=== PATIENT | male | born 1975 | race Caucasian/White ===

== ENCOUNTER 2023-12-12 11:33 | Inpatient (IN) | payer OTHER ==
[~2023-12-12] VITALS: Ht 175.3 cm; Wt 115.7 kg
[2023-12-12] MEDS: SODIUM CHLORIDE 0.9% 1,000 ML IV ONE (12:32)
[2023-12-12] MEDS: LEVETIRACETAM 1000MG PREMIX 100 ML IV ONE (12:32)
[2023-12-12 12:53] LABS: BASOPHILS % 1.1 % (0.0-2.0); EOSINOPHILS % 2.1 % (0.0-5.0); HEMATOCRIT. 44.2 % (42.0-52.0); HEMOGLOBIN. 14.8 g/dL (14.0-18.0); LYMPHOCYTES % 33.8 % (20.0-50.0); MEAN CORPUSCULAR HEMOGLOBIN 30.1 pg (28.0-32.0); MEAN CORPUSCULAR HGB CONC 33.5 g/dL (31.0-37.0); MEAN CORPUSCULAR VOLUME 89.9 fL (80.0-94.0); MEAN PLATELET VOLUME 10.1 fl (7.4-10.4); MONOCYTES % 6.3 % (2.0-8.0); NEUTROPHILS % 56.7 % (40.0-76.0); PLATELET 55 x1000/uL (130-400); RED BLOOD CELL COUNT 4.92 mill/uL (4.7-6.1); WHITE BLOOD COUNT 4.3 x1000/uL (4.5-11.0)
[2023-12-12 13:02] LABS: INR 1.1; PROTHROMBIN TIME 12.5 sec (9.6-11.0)
[2023-12-12 13:04] LABS: CHLORIDE 115 mEq/L (98-107); POTASSIUM 4.5 mEq/L (3.5-5.1); SODIUM 143 mEq/L (136-145)
[2023-12-12 13:05] LABS: CALCIUM 8.7 mg/dL (8.7-10.4); CARBON DIOXIDE 25 mEq/L (21-32)
[2023-12-12 13:10] LABS: CREATININE 0.9 mg/dL (0.6-1.3); GLUCOSE 108 mg/dL (70-105)
[2023-12-12 13:11] LABS: UREA NITROGEN BLOOD 10 mg/dL (9-23)
[2023-12-12 13:27] LABS: ETHANOL BLOOD < 10 mg/dL (<10); PHENOBARBITAL < 3.0 ug/mL (15.0-40.0); PHENYTOIN < 2.0 ug/mL (10-20)
[2023-12-12 13:28] LABS: CARBAMAZEPINE < 0.4 ug/mL (4-12); VALPROIC ACID < 3.0 ug/mL (50-100)
[2023-12-12 13:37] LABS: AMMONIA 166 uMol/L (<32)
[2023-12-12] MEDS: LACTULOSE 20G/30ML UDC PO NR (15:24)
[2023-12-12] MEDS: RIFAXIMIN 550 MG TABLET PO SCH (16:11)
[2023-12-12 17:12] LABS: CLARITY URINE CLEAR (CLEAR); COLOR URINE YELLOW (YELLOW); GLUCOSE URINE NEGATIVE (NEGATIVE); KETONES URINE NEGATIVE (NEGATIVE); LEUKOCYTE ESTERASE URINE NEGATIVE (NEGATIVE); NITRITE URINE NEGATIVE (NEGATIVE); OCCULT BLOOD URINE NEGATIVE (NEGATIVE); PROTEIN URINE NEGATIVE (NEGATIVE); SPECIFIC GRAVITY URINE 1.012 (1.005-1.030)
[2023-12-12 17:12] LABS: ALANINE AMINOTRANSFERASE 19 IU/L (10-49); ASPARTATE AMINOTRANSFERASE 43 IU/L (<34)
[2023-12-12 17:13] LABS: ALBUMIN 3.7 g/dL (3.2-4.8); BILIRUBIN DIRECT 0.5 mg/dL (<=3.0); BILIRUBIN TOTAL 1.2 mg/dL (0.1-1.0); PROTEIN TOTAL 6.7 g/dL (6.0-8.3)
[2023-12-12] MEDS ORDERED: ONDANSETRON HCL 4MG/2ML INJ IV PRN (17:15)
[2023-12-12] MEDS ORDERED: HYDROCODONE/ACETAMINOPHEN 5/325MG TABLET PO PRN (17:15)
[2023-12-12] MEDS ORDERED: IPRATROPIUM/ALBUTEROL 0.5-3(2.5)MG/3ML NEB HHN PRN (17:15)
[2023-12-12] MEDS ORDERED: ACETAMINOPHEN 325MG TABLET PO PRN (17:15)
[2023-12-12 17:18] LABS: *AMPHETAMINES SCREEN URINE NEGATIVE (NEGATIVE); *BARBITURATES SCREEN URINE NEGATIVE (NEGATIVE); *BENZODIAZEPINES SCREEN URINE NEGATIVE (NEGATIVE); *COCAINE SCREEN URINE NEGATIVE (NEGATIVE); METHADONE URINE SCREEN NEGATIVE (NEGATIVE)
[2023-12-12 17:19] LABS: CANNABINOID URINE SCREEN NEGATIVE (NEGATIVE); ECSTASY MDMA SCREEN URINE NEGATIVE (NEGATIVE); OPIATES URINE SCREEN NEGATIVE (NEGATIVE); PHENCYCLIDINE URINE SCREEN NEGATIVE (NEGATIVE)
[2023-12-12 17:27] LABS: BACTERIA URINE TRACE; RBC URINE NONE SEEN /hpf (0-2); SQUAMOUS EPITHELIAL CELL URINE RARE /lpf (RARE/1+); WBC URINE 0-2 /hpf (0-2)
[2023-12-12 20:00] VITALS: BP 127/89; PULSE 69; RESP 18; TEMP 36.28068; O2SAT 96
[2023-12-12] MEDS ORDERED: NALOXONE HCL 0.4MG/ML VIAL IV PRN (20:00)
[2023-12-12] MEDS: LEVETIRACETAM 500MG PREMIX 100 ML IV SCH (21:02)
[2023-12-12 22:14] LABS: CREATINE KINASE MB FRACTION < 0.5 ng/mL (0.5-3.6)
[2023-12-12 22:15] LABS: CREATINE KINASE 79 IU/L (46-171)
[2023-12-12 22:20] LABS: TROPONIN I HIGH SENSITIVITY < 4 ng/L (3.0-53)
[2023-12-13] VITALS (63 sets, daily range): BP systolic 98–203; BP diastolic 54–155; PULSE 61–115; RESP 11–33; TEMP 36.418–36.9474; O2SAT 95–100
[2023-12-13 08:13] LABS: BASOPHILS % 0.8 % (0.0-2.0); EOSINOPHILS % 2.3 % (0.0-5.0); HEMATOCRIT. 45.3 % (42.0-52.0); HEMOGLOBIN. 14.4 g/dL (14.0-18.0); LYMPHOCYTES % 39.9 % (20.0-50.0); MEAN CORPUSCULAR HEMOGLOBIN 28.8 pg (28.0-32.0); MEAN CORPUSCULAR HGB CONC 31.8 g/dL (31.0-37.0); MEAN CORPUSCULAR VOLUME 90.7 fL (80.0-94.0); PLATELET 53 x1000/uL (130-400); RED CELL DISTRIBUTION WIDTH 16.1 % (11.6-14.6); WHITE BLOOD COUNT 4.1 x1000/uL (4.5-11.0)
[2023-12-13 08:17] LABS: CHLORIDE 113 mEq/L (98-107); POTASSIUM 3.8 mEq/L (3.5-5.1); SODIUM 142 mEq/L (136-145)
[2023-12-13 08:18] LABS: CALCIUM 8.7 mg/dL (8.7-10.4); CARBON DIOXIDE 24 mEq/L (21-32)
[2023-12-13 08:23] LABS: CREATINE KINASE MB FRACTION < 0.5 ng/mL (0.5-3.6); CREATININE 0.7 mg/dL (0.6-1.3); GLUCOSE 84 mg/dL (70-105); UREA NITROGEN BLOOD 8 mg/dL (9-23)
[2023-12-13 08:25] LABS: ALANINE AMINOTRANSFERASE 16 IU/L (10-49); ALBUMIN 3.4 g/dL (3.2-4.8); AMMONIA 81 uMol/L (<32); ASPARTATE AMINOTRANSFERASE 36 IU/L (<34); BILIRUBIN DIRECT 0.7 mg/dL (<=3.0); BILIRUBIN TOTAL 1.8 mg/dL (0.1-1.0); PROTEIN TOTAL 6.3 g/dL (6.0-8.3)
[2023-12-13 08:26] LABS: CREATINE KINASE 65 IU/L (46-171)
[2023-12-13 08:29] LABS: TROPONIN I HIGH SENSITIVITY < 4 ng/L (3.0-53)
[2023-12-13] MEDS ORDERED: NALOXONE HCL 0.4MG/ML VIAL IV PRN (09:30)
[2023-12-13] MEDS ORDERED: ASPIRIN 325MG EC TABLET PO NR (09:30)
[2023-12-13] MEDS ORDERED: MANNITOL 20% (20GM/100ML) BAG 500ML PREMIX IV ONE (10:00)
[2023-12-13] MEDS: NICARDIPINE 100 MG in SODIUM CHLORIDE 0.9% 60 ML IV PRN (10:28)
[2023-12-13] MEDS ORDERED: IOHEXOL-350 100 ML BOTTLE ONE (10:28)
[2023-12-13] MEDS: DEXAMETHASONE 10 MG/ML VIAL IV NR (10:30)
[2023-12-13 10:35] LABS: BG BASE EXCESS -3.9 mmol/L (-2.0-3.0); BG CARBOXYHEMOGLOBIN 0.5 % (0.5-1.5); BG DEOXYHEMOGLOBIN 0.4 % (0.0-5.0); BG FRACTION INSPIRED OXYGEN 44; BG HCO3 ACT 19.6 mmol/L (21.0-28.0); BG OXYGEN SATURATION 99.6 % (94.0-98.0); BG OXYHEMOGLOBIN 99.1 % (94.0-98.0); BG PCO2 32.1 mmHg (35.0-48.0); BG PH 7.404 (7.350-7.450); BG PO2 196.4 mmHg (83.0-108.0); BG SAMPLE SITE RIGHT RADIAL; BG VENT MODE NASAL CANNULA
[2023-12-13] MEDS ORDERED: GENTAMICIN SULF 40MG/ML 2ML VIAL ONE (11:23)
[2023-12-13] MEDS ORDERED: THROMBIN (BOVINE) 5000 UNITS/VIAL TOP ONE (11:23)
[2023-12-13] MEDS ORDERED: LIDOCAINE HCL/EPINEPHRINE 1%-EPI 1:100,000 20ML VIAL ONE (11:23)
[2023-12-13] MEDS ORDERED: BACITRACIN 14GM TUBE TOP ONE (11:23)
[2023-12-13 11:58] LABS: BASOPHILS % 0.6 % (0.0-2.0); EOSINOPHILS % 0.6 % (0.0-5.0); HEMATOCRIT. 48.9 % (42.0-52.0); LYMPHOCYTES % 30.6 % (20.0-50.0); MEAN CORPUSCULAR HEMOGLOBIN 29.3 pg (28.0-32.0); MEAN CORPUSCULAR HGB CONC 32.6 g/dL (31.0-37.0); MEAN CORPUSCULAR VOLUME 89.8 fL (80.0-94.0); MEAN PLATELET VOLUME 10.5 fl (7.4-10.4); MONOCYTES % 3.2 % (2.0-8.0); PLATELET 67 x1000/uL (130-400); RED BLOOD CELL COUNT 5.44 mill/uL (4.7-6.1); RED CELL DISTRIBUTION WIDTH 16.2 % (11.6-14.6); WHITE BLOOD COUNT 7.3 x1000/uL (4.5-11.0)
[2023-12-13 12:04] LABS: CARBON DIOXIDE 23 mEq/L (21-32); CHLORIDE 109 mEq/L (98-107); SODIUM 141 mEq/L (136-145)
[2023-12-13 12:05] LABS: CALCIUM 9.1 mg/dL (8.7-10.4)
[2023-12-13 12:10] LABS: CREATININE 0.7 mg/dL (0.6-1.3); GLUCOSE 168 mg/dL (70-105); TRIGLYCERIDE 89 mg/dL (0-150)
[2023-12-13 12:11] LABS: LDL CHOLESTEROL 91 mg/dL (5-100); UREA NITROGEN BLOOD 9 mg/dL (9-23)
[2023-12-13 12:12] LABS: CHOLESTEROL 155 mg/dL (<200); HDL CHOLESTEROL 50 mg/dL (>55)
[2023-12-13] MEDS: WATER IV NR (12:15)
[2023-12-13] MEDS: DEXT 5% IV NR (12:15)
[2023-12-13] MEDS: MANNITOL IV NR (12:15)
[2023-12-13 12:17] LABS: INR 1.1; PROTHROMBIN TIME 12.5 sec (9.6-11.0)
[2023-12-13] MEDS ORDERED: VECURONIUM BROMIDE 10 MG/VIAL IV ONE ×2 (12:40→14:42)
[2023-12-13] MEDS ORDERED: PROPOFOL 200MG/20ML VIAL IV ONE (13:45)
[2023-12-13] MEDS ORDERED: HYDROMORPHONE HCL/PF 2MG/ML INJ ONE (14:37)
[2023-12-13 16:05] LABS: BG BASE EXCESS -3.3 mmol/L (-2.0-3.0); BG CARBOXYHEMOGLOBIN 1.1 % (0.5-1.5); BG DEOXYHEMOGLOBIN 2.9 % (0.0-5.0); BG FRACTION INSPIRED OXYGEN 40; BG HCO3 ACT 22.1 mmol/L (21.0-28.0); BG METHEMOGLOBIN 0.1 % (0.5-1.5); BG OXYGEN SATURATION 97.1 % (94.0-98.0); BG OXYHEMOGLOBIN 95.9 % (94.0-98.0); BG PCO2 41.1 mmHg (35.0-48.0); BG PH 7.349 (7.350-7.450); BG SAMPLE SITE RIGHT RADIAL; BG TOTAL HEMOGLOBIN 16.2 g/dL (13.5-17.5); BG VENT MODE VENT - AC
[2023-12-13] MEDS: LACTULOSE 20G/30ML UDC PO SCH (16:39)
[2023-12-13] MEDS: CEFAZOLIN 1000MG PREMIX 50 ML IV SCH (16:40)
[2023-12-13] MEDS: DEXT 5%/LACTATED RINGERS 1,000 ML IV SCH (19:17)
[2023-12-13] MEDS: PROPOFOL 10MG/ML 100ML 100 ML IV PRN (21:04)
[2023-12-13] MEDS: LEVETIRACETAM 500MG PREMIX 100 ML IV SCH (21:05)
[2023-12-13] MEDS ORDERED: CEFAZOLIN SODIUM 1000MG/VIAL IV SCH (22:00)
[2023-12-14] VITALS (103 sets, daily range): BP systolic 89–138; BP diastolic 56–85; PULSE 80–111; RESP 10–27; TEMP 36.72516–37.94748; O2SAT 89–100
[2023-12-14 05:46] LABS: BASOPHILS % 0.1 % (0.0-2.0); HEMATOCRIT. 42.2 % (42.0-52.0); LYMPHOCYTES % 15.2 % (20.0-50.0); MEAN CORPUSCULAR HEMOGLOBIN 29.6 pg (28.0-32.0); MEAN CORPUSCULAR HGB CONC 33.2 g/dL (31.0-37.0); MEAN PLATELET VOLUME 9.9 fl (7.4-10.4); MONOCYTES % 5.7 % (2.0-8.0); PLATELET 86 x1000/uL (130-400); RED BLOOD CELL COUNT 4.74 mill/uL (4.7-6.1); RED CELL DISTRIBUTION WIDTH 15.8 % (11.6-14.6); WHITE BLOOD COUNT 12.6 x1000/uL (4.5-11.0)
[2023-12-14 05:53] LABS: CHLORIDE 111 mEq/L (98-107); POTASSIUM 3.8 mEq/L (3.5-5.1); SODIUM 144 mEq/L (136-145)
[2023-12-14 05:54] LABS: CALCIUM 8.8 mg/dL (8.7-10.4); CARBON DIOXIDE 25 mEq/L (21-32)
[2023-12-14 05:59] LABS: GLUCOSE 141 mg/dL (70-105); TRIGLYCERIDE 84 mg/dL (0-150); UREA NITROGEN BLOOD 20 mg/dL (9-23)
[2023-12-14 06:01] LABS: PHOSPHORUS 2.7 mg/dL (2.5-4.9)
[2023-12-14] MEDS: MORPHINE SULFATE 4 MG/ML INJ (FOR IV/IM USE) IV PRN (14:50)
[2023-12-14 15:19] LABS: BG BASE EXCESS -0.4 mmol/L (-2.0-3.0); BG CARBOXYHEMOGLOBIN 0.9 % (0.5-1.5); BG DEOXYHEMOGLOBIN 10.5 % (0.0-5.0); BG METHEMOGLOBIN 0.3 % (0.5-1.5); BG OXYGEN SATURATION 89.4 % (94.0-98.0); BG OXYHEMOGLOBIN 88.3 % (94.0-98.0); BG PCO2 34.3 mmHg (35.0-48.0); BG PH 7.445 (7.350-7.450); BG PO2 56.3 mmHg (83.0-108.0); BG SAMPLE SITE RIGHT RADIAL; BG TOTAL HEMOGLOBIN 14.5 g/dL (13.5-17.5); BG VENT MODE VENT - AC
[2023-12-14] MEDS ORDERED: FENTANYL CITRATE/PF 2,500 MCG in SODIUM CHLORIDE 0.9% 200 ML IV PRN (15:30)
[2023-12-14 16:49] LABS: HEMATOCRIT 41.8 % (42.0-52.0); HEMOGLOBIN 14.1 g/dL (14.0-18.0); MEAN CORPUSCULAR HEMOGLOBIN 29.9 pg (28.0-32.0); MEAN CORPUSCULAR HGB CONC 33.8 g/dL (31.0-37.0); MEAN CORPUSCULAR VOLUME 88.5 fL (80.0-94.0); PLATELET 86 x1000/uL (130-400); RED BLOOD CELL COUNT 4.72 mill/uL (4.7-6.1); RED CELL DISTRIBUTION WIDTH 15.8 % (11.6-14.6); WHITE BLOOD COUNT 9.6 x1000/uL (4.5-11.0)
[2023-12-14] MEDS: PROPOFOL 10MG/ML 100ML 100 ML IV PRN (17:03)
[2023-12-14] MEDS: PANTOPRAZOLE 80 MG in SODIUM CHLORIDE 0.9% 100 ML IV SCH (17:04)
[2023-12-14] MEDS ORDERED: ACETAMINOPHEN 325MG TABLET NG PRN (17:15)
[2023-12-14] MEDS: ACETAMINOPHEN 650MG/20.3ML UDC NG PRN (20:42)
[2023-12-15] VITALS (111 sets, daily range): BP systolic 91–139; BP diastolic 58–86; PULSE 77–106; RESP 12–22; TEMP 36.72516–37.83636; O2SAT 92–100
[2023-12-15 02:30] LABS: BG BASE EXCESS -0.1 mmol/L (-2.0-3.0); BG CARBOXYHEMOGLOBIN 0.5 % (0.5-1.5); BG DEOXYHEMOGLOBIN 4.5 % (0.0-5.0); BG FRACTION INSPIRED OXYGEN 100; BG HCO3 ACT 22.7 mmol/L (21.0-28.0); BG METHEMOGLOBIN 0.3 % (0.5-1.5); BG OXYGEN SATURATION 95.5 % (94.0-98.0); BG OXYHEMOGLOBIN 94.7 % (94.0-98.0); BG PCO2 31.9 mmHg (35.0-48.0); BG PH 7.471 (7.350-7.450); BG PO2 76.9 mmHg (83.0-108.0); BG SAMPLE SITE RIGHT RADIAL; BG TOTAL HEMOGLOBIN 13.7 g/dL (13.5-17.5); BG VENT MODE VENT - P/C
[2023-12-15 05:31] LABS: BASOPHILS % 0.1 % (0.0-2.0); DIFFERENTIAL COMMENT 0; EOSINOPHILS % 0.2 % (0.0-5.0); HEMATOCRIT. 40.7 % (42.0-52.0); HEMOGLOBIN. 13.5 g/dL (14.0-18.0); LYMPHOCYTES % 14.3 % (20.0-50.0); MEAN CORPUSCULAR HEMOGLOBIN 30.5 pg (28.0-32.0); MEAN CORPUSCULAR HGB CONC 33.3 g/dL (31.0-37.0); MEAN CORPUSCULAR VOLUME 91.6 fL (80.0-94.0); MEAN PLATELET VOLUME 10.1 fl (7.4-10.4); NEUTROPHILS % 77.4 % (40.0-76.0); PLATELET 68 x1000/uL (130-400); RED BLOOD CELL COUNT 4.45 mill/uL (4.7-6.1); RED CELL DISTRIBUTION WIDTH 16.1 % (11.6-14.6); WHITE BLOOD COUNT 11.8 x1000/uL (4.5-11.0)
[2023-12-15 05:48] LABS: CARBON DIOXIDE 19 mEq/L (21-32); CHLORIDE 111 mEq/L (98-107); POTASSIUM 4.1 mEq/L (3.5-5.1); SODIUM 142 mEq/L (136-145)
[2023-12-15 05:49] LABS: CALCIUM 7.9 mg/dL (8.7-10.4)
[2023-12-15 05:54] LABS: CREATININE 0.9 mg/dL (0.6-1.3); GLUCOSE 117 mg/dL (70-105); TRIGLYCERIDE 88 mg/dL (0-150); UREA NITROGEN BLOOD 18 mg/dL (9-23)
[2023-12-15 05:56] LABS: PHOSPHORUS 4.4 mg/dL (2.5-4.9)
[2023-12-15] MEDS ORDERED: PANTOPRAZOLE SODIUM 40 MG/VIAL IV SCH (09:00)
[2023-12-15] MEDS: VANCOMYCIN 1.5GM PMX (XELLIA) 300 ML IV SCH (14:11)
[2023-12-15] MEDS: PIPERACILLIN/TAZO 3.375G/50ML 50 ML IV SCH (14:12)
[2023-12-15] MEDS: PROPOFOL 10MG/ML 100ML 100 ML IV PRN (17:19)
[2023-12-15] MEDS: NICARDIPINE 100 MG in SODIUM CHLORIDE 0.9% 60 ML IV PRN (19:13)
[2023-12-15] MEDS: IPRATROPIUM/ALBUTEROL 0.5-3(2.5)MG/3ML NEB HHN SCH (20:27)
[2023-12-15] MEDS: MICONAZOLE NITRATE 2% OINT 71GM TOP SCH (21:15)
[2023-12-15] MEDS: VANCOMYCIN 1.25GM PMX (XELLIA) 250 ML IV SCH (21:43)
[2023-12-15 22:32] LABS: BG BASE EXCESS -5.3 mmol/L (-2.0-3.0); BG CARBOXYHEMOGLOBIN 0.3 % (0.5-1.5); BG FRACTION INSPIRED OXYGEN 100; BG HCO3 ACT 17.1 mmol/L (21.0-28.0); BG METHEMOGLOBIN 0.3 % (0.5-1.5); BG OXYHEMOGLOBIN 98.4 % (94.0-98.0); BG PCO2 25.8 mmHg (35.0-48.0); BG PH 7.439 (7.350-7.450); BG SAMPLE SITE LEFT RADIAL; BG TOTAL HEMOGLOBIN 14.4 g/dL (13.5-17.5); BG VENT MODE VENT - P/C
[2023-12-16] VITALS (105 sets, daily range): BP systolic 91–126; BP diastolic 47–80; PULSE 92–121; RESP 8–23; TEMP 36.50292–39.33648; O2SAT 94–100
[2023-12-16] MEDS: ACETYLCYSTEINE 200MG/ML 20% VIAL 4ML INH SCH (02:06)
[2023-12-16 06:10] LABS: BASOPHILS % 0.1 % (0.0-2.0); EOSINOPHILS % 0.2 % (0.0-5.0); HEMATOCRIT. 38.8 % (42.0-52.0); HEMOGLOBIN. 13.1 g/dL (14.0-18.0); LYMPHOCYTES % 12.8 % (20.0-50.0); MEAN CORPUSCULAR HEMOGLOBIN 29.7 pg (28.0-32.0); MEAN CORPUSCULAR HGB CONC 33.6 g/dL (31.0-37.0); MEAN CORPUSCULAR VOLUME 88.2 fL (80.0-94.0); MEAN PLATELET VOLUME 10.8 fl (7.4-10.4); MONOCYTES % 7.4 % (2.0-8.0); NEUTROPHILS % 79.5 % (40.0-76.0); PLATELET 72 x1000/uL (130-400); RED BLOOD CELL COUNT 4.41 mill/uL (4.7-6.1); RED CELL DISTRIBUTION WIDTH 15.2 % (11.6-14.6); WHITE BLOOD COUNT 11.1 x1000/uL (4.5-11.0)
[2023-12-16 06:37] LABS: CARBON DIOXIDE 23 mEq/L (21-32); CHLORIDE 108 mEq/L (98-107); POTASSIUM 3.4 mEq/L (3.5-5.1); SODIUM 142 mEq/L (136-145)
[2023-12-16 06:38] LABS: CALCIUM 8.4 mg/dL (8.7-10.4)
[2023-12-16 06:41] LABS: CREATININE 1.3 mg/dL (0.6-1.3)
[2023-12-16 06:43] LABS: GLUCOSE 149 mg/dL (70-105); TRIGLYCERIDE 147 mg/dL (0-150); UREA NITROGEN BLOOD 26 mg/dL (9-23)
[2023-12-16 06:45] LABS: PHOSPHORUS 2.4 mg/dL (2.5-4.9)
[2023-12-16 09:56] LABS: BG BASE EXCESS -3.8 mmol/L (-2.0-3.0); BG CARBOXYHEMOGLOBIN 0.3 % (0.5-1.5); BG FRACTION INSPIRED OXYGEN 60; BG HCO3 ACT 20.6 mmol/L (21.0-28.0); BG METHEMOGLOBIN 0.3 % (0.5-1.5); BG OXYHEMOGLOBIN 96.4 % (94.0-98.0); BG PCO2 36.2 mmHg (35.0-48.0); BG PH 7.372 (7.350-7.450); BG PO2 93.2 mmHg (83.0-108.0); BG SAMPLE SITE RIGHT RADIAL; BG TOTAL HEMOGLOBIN 18.9 g/dL (13.5-17.5); BG VENT MODE VENT - P/C
[2023-12-16] MEDS: PROPOFOL 10MG/ML 100ML 100 ML IV PRN (15:15)
[2023-12-16 22:52] LABS: CLARITY URINE CLEAR (CLEAR); COLOR URINE DARK YELLOW (YELLOW); GLUCOSE URINE NEGATIVE (NEGATIVE); KETONES URINE NEGATIVE (NEGATIVE); LEUKOCYTE ESTERASE URINE 1+ (NEGATIVE); NITRITE URINE NEGATIVE (NEGATIVE); OCCULT BLOOD URINE NEGATIVE (NEGATIVE); PH URINE 5.5 (4.5-8.0); PROTEIN URINE TRACE (NEGATIVE); SPECIFIC GRAVITY URINE 1.032 (1.005-1.030)
[2023-12-16] MEDS: KCL 10MEQ/50ML PREMIX 50 ML IV SCH (23:05)
[2023-12-16 23:13] LABS: BACTERIA URINE NONE SEEN; RBC URINE NONE SEEN /hpf (0-2); SQUAMOUS EPITHELIAL CELL URINE FEW /lpf (RARE/1+); WBC URINE 0-2 /hpf (0-2)
[2023-12-17] VITALS (102 sets, daily range): BP systolic 91–133; BP diastolic 57–88; PULSE 75–107; RESP 8–19; TEMP 36.44736–37.2252; O2SAT 93–100
[2023-12-17 04:26] LABS: CHLORIDE 110 mEq/L (98-107); POTASSIUM 3.6 mEq/L (3.5-5.1); SODIUM 143 mEq/L (136-145)
[2023-12-17 04:27] LABS: CALCIUM 7.7 mg/dL (8.7-10.4); CARBON DIOXIDE 25 mEq/L (21-32)
[2023-12-17 04:32] LABS: CREATININE 1.2 mg/dL (0.6-1.3); GLUCOSE 121 mg/dL (70-105); TRIGLYCERIDE 113 mg/dL (0-150); UREA NITROGEN BLOOD 26 mg/dL (9-23)
[2023-12-17] MEDS: PROPOFOL 10MG/ML 100ML 100 ML IV PRN (19:57)
[2023-12-18] VITALS (102 sets, daily range): BP systolic 102–164; BP diastolic 57–94; PULSE 86–122; RESP 13–25; TEMP 36.78072–37.55856; O2SAT 93–100
[2023-12-18 06:02] LABS: BASOPHILS % 0.5 % (0.0-2.0); EOSINOPHILS % 2.5 % (0.0-5.0); HEMATOCRIT. 34.4 % (42.0-52.0); HEMOGLOBIN. 11.6 g/dL (14.0-18.0); LYMPHOCYTES % 20.7 % (20.0-50.0); MEAN CORPUSCULAR HEMOGLOBIN 30.1 pg (28.0-32.0); MEAN CORPUSCULAR HGB CONC 33.6 g/dL (31.0-37.0); MEAN CORPUSCULAR VOLUME 89.5 fL (80.0-94.0); MEAN PLATELET VOLUME 10.8 fl (7.4-10.4); MONOCYTES % 11.4 % (2.0-8.0); NEUTROPHILS % 64.9 % (40.0-76.0); PLATELET 63 x1000/uL (130-400); RED BLOOD CELL COUNT 3.84 mill/uL (4.7-6.1); RED CELL DISTRIBUTION WIDTH 16.2 % (11.6-14.6); WHITE BLOOD COUNT 5.9 x1000/uL (4.5-11.0)
[2023-12-18 06:13] LABS: CARBON DIOXIDE 28 mEq/L (21-32); CHLORIDE 111 mEq/L (98-107); POTASSIUM 3.5 mEq/L (3.5-5.1); SODIUM 146 mEq/L (136-145)
[2023-12-18 06:19] LABS: CREATININE 0.8 mg/dL (0.6-1.3); GLUCOSE 100 mg/dL (70-105); UREA NITROGEN BLOOD 17 mg/dL (9-23)
[2023-12-18] MEDS: FENTANYL 2500MCG/250ML PMX 250 ML IV PRN (08:49)
[2023-12-18] MEDS: CLONIDINE 0.1MG TABLET PO SCH (09:47)
[2023-12-18] MEDS: DEXT 5%/LACTATED RINGERS 1,000 ML IV SCH (12:53)
[2023-12-18 16:46] LABS: AMMONIA 70 uMol/L (<32)
[2023-12-18] MEDS: PROPOFOL 10MG/ML 100ML 100 ML IV PRN (21:16)
[2023-12-19] VITALS (107 sets, daily range): BP systolic 101–156; BP diastolic 58–94; PULSE 74–110; RESP 12–28; TEMP 36.89184–38.3364; O2SAT 95–100
[2023-12-19 05:32] LABS: CARBON DIOXIDE 28 mEq/L (21-32); CHLORIDE 112 mEq/L (98-107); POTASSIUM 3.4 mEq/L (3.5-5.1); SODIUM 145 mEq/L (136-145)
[2023-12-19 05:33] LABS: CALCIUM 7.9 mg/dL (8.7-10.4)
[2023-12-19 05:37] LABS: CREATININE 0.8 mg/dL (0.6-1.3)
[2023-12-19 05:38] LABS: GLUCOSE 127 mg/dL (70-105); TRIGLYCERIDE 104 mg/dL (0-150); UREA NITROGEN BLOOD 21 mg/dL (9-23)
[2023-12-19 07:08] LABS: BASOPHILS % 0.8 % (0.0-2.0); EOSINOPHILS % 2.4 % (0.0-5.0); HEMATOCRIT. 31.6 % (42.0-52.0); HEMOGLOBIN. 10.6 g/dL (14.0-18.0); LYMPHOCYTES % 16.7 % (20.0-50.0); MEAN CORPUSCULAR HEMOGLOBIN 29.8 pg (28.0-32.0); MEAN CORPUSCULAR HGB CONC 33.5 g/dL (31.0-37.0); MEAN CORPUSCULAR VOLUME 89.1 fL (80.0-94.0); MEAN PLATELET VOLUME 10.6 fl (7.4-10.4); MONOCYTES % 10.1 % (2.0-8.0); PLATELET 63 x1000/uL (130-400); RED BLOOD CELL COUNT 3.55 mill/uL (4.7-6.1); RED CELL DISTRIBUTION WIDTH 16.2 % (11.6-14.6)
[2023-12-19] MEDS: RIFAXIMIN 550 MG TABLET PO SCH (08:16)
[2023-12-19 08:36] LABS: BG BASE EXCESS 2.6 mmol/L (-2.0-3.0); BG CARBOXYHEMOGLOBIN 0.1 % (0.5-1.5); BG DEOXYHEMOGLOBIN 2.3 % (0.0-5.0); BG FRACTION INSPIRED OXYGEN 40; BG HCO3 ACT 26.3 mmol/L (21.0-28.0); BG METHEMOGLOBIN 0.3 % (0.5-1.5); BG OXYGEN SATURATION 97.7 % (94.0-98.0); BG OXYHEMOGLOBIN 97.3 % (94.0-98.0); BG PCO2 36.9 mmHg (35.0-48.0); BG PO2 98.6 mmHg (83.0-108.0); BG SAMPLE SITE LEFT RADIAL; BG TOTAL HEMOGLOBIN 11.1 g/dL (13.5-17.5); BG TOTAL RESPIRATORY RATE 17 b/min; BG VENT MODE VENT - P/C
[2023-12-20] VITALS (105 sets, daily range): BP systolic 104–163; BP diastolic 54–100; PULSE 66–128; RESP 12–36; TEMP 36.89184–38.00304; O2SAT 96–100
[2023-12-20 05:43] LABS: BASOPHILS % 0.5 % (0.0-2.0); EOSINOPHILS % 2.1 % (0.0-5.0); HEMATOCRIT. 33.9 % (42.0-52.0); HEMOGLOBIN. 11.3 g/dL (14.0-18.0); LYMPHOCYTES % 19.9 % (20.0-50.0); MEAN CORPUSCULAR HEMOGLOBIN 29.6 pg (28.0-32.0); MEAN CORPUSCULAR HGB CONC 33.3 g/dL (31.0-37.0); MEAN CORPUSCULAR VOLUME 88.9 fL (80.0-94.0); MEAN PLATELET VOLUME 10.6 fl (7.4-10.4); MONOCYTES % 9.8 % (2.0-8.0); NEUTROPHILS % 67.7 % (40.0-76.0); PLATELET 72 x1000/uL (130-400); RED BLOOD CELL COUNT 3.81 mill/uL (4.7-6.1); RED CELL DISTRIBUTION WIDTH 16.2 % (11.6-14.6); WHITE BLOOD COUNT 6.5 x1000/uL (4.5-11.0)
[2023-12-20 06:09] LABS: CALCIUM 8.2 mg/dL (8.7-10.4); CARBON DIOXIDE 28 mEq/L (21-32); CHLORIDE 111 mEq/L (98-107); POTASSIUM 3.5 mEq/L (3.5-5.1); SODIUM 146 mEq/L (136-145)
[2023-12-20 06:15] LABS: CREATININE 0.8 mg/dL (0.6-1.3); GLUCOSE 113 mg/dL (70-105); UREA NITROGEN BLOOD 21 mg/dL (9-23)
[2023-12-20] MEDS ORDERED: NALOXONE HCL 0.4MG/ML VIAL IV PRN (21:45)
[2023-12-20] MEDS: MORPHINE SULFATE 2 MG/ML INJ (NOT FOR IM USE) IV PRN (22:00)
[2023-12-21] VITALS (105 sets, daily range): BP systolic 99–141; BP diastolic 50–93; PULSE 83–115; RESP 14–32; TEMP 37.16964–38.0586; O2SAT 95–100
[2023-12-21 06:24] LABS: AMMONIA 91 uMol/L (<32)
[2023-12-21 06:32] LABS: CHLORIDE 112 mEq/L (98-107); POTASSIUM 3.6 mEq/L (3.5-5.1); SODIUM 144 mEq/L (136-145)
[2023-12-21 06:33] LABS: CALCIUM 8.1 mg/dL (8.7-10.4); CARBON DIOXIDE 25 mEq/L (21-32)
[2023-12-21 06:34] LABS: BASOPHILS % 0.4 % (0.0-2.0); EOSINOPHILS % 0.5 % (0.0-5.0); HEMATOCRIT. 33.3 % (42.0-52.0); HEMOGLOBIN. 11.2 g/dL (14.0-18.0); LYMPHOCYTES % 9.6 % (20.0-50.0); MEAN CORPUSCULAR HGB CONC 33.6 g/dL (31.0-37.0); MEAN CORPUSCULAR VOLUME 89.4 fL (80.0-94.0); MEAN PLATELET VOLUME 10.7 fl (7.4-10.4); MONOCYTES % 6.3 % (2.0-8.0); NEUTROPHILS % 83.2 % (40.0-76.0); PLATELET 87 x1000/uL (130-400); RED BLOOD CELL COUNT 3.73 mill/uL (4.7-6.1); RED CELL DISTRIBUTION WIDTH 15.8 % (11.6-14.6); WHITE BLOOD COUNT 8.6 x1000/uL (4.5-11.0)
[2023-12-21 06:38] LABS: CREATININE 0.8 mg/dL (0.6-1.3); GLUCOSE 129 mg/dL (70-105); UREA NITROGEN BLOOD 22 mg/dL (9-23)
[2023-12-21 06:40] LABS: ALANINE AMINOTRANSFERASE 88 IU/L (10-49); ALBUMIN 3.1 g/dL (3.2-4.8); ASPARTATE AMINOTRANSFERASE 173 IU/L (<34); BILIRUBIN DIRECT 0.9 mg/dL (<=3.0); BILIRUBIN TOTAL 1.6 mg/dL (0.1-1.0); PROTEIN TOTAL 6.4 g/dL (6.0-8.3)
[2023-12-21 08:54] LABS: BG BASE EXCESS 0.8 mmol/L (-2.0-3.0); BG CARBOXYHEMOGLOBIN 0.2 % (0.5-1.5); BG DEOXYHEMOGLOBIN 1.7 % (0.0-5.0); BG FRACTION INSPIRED OXYGEN 470; BG HCO3 ACT 23.3 mmol/L (21.0-28.0); BG METHEMOGLOBIN 0.3 % (0.5-1.5); BG OXYGEN SATURATION 98.3 % (94.0-98.0); BG OXYHEMOGLOBIN 97.8 % (94.0-98.0); BG PCO2 30.5 mmHg (35.0-48.0); BG PH 7.501 (7.350-7.450); BG PO2 112.3 mmHg (83.0-108.0); BG SAMPLE SITE RIGHT RADIAL; BG TOTAL HEMOGLOBIN 11.7 g/dL (13.5-17.5); BG VENT MODE VENT - AC/PC
[2023-12-21] MEDS: MEROPENEM 1G/100ML IV SCH (11:24)
[2023-12-22] VITALS (96 sets, daily range): BP systolic 114–164; BP diastolic 69–101; PULSE 67–110; RESP 18–33; TEMP 36.89184–37.89192; O2SAT 96–100
[2023-12-22 19:06] LABS: BG BASE EXCESS -2.6 mmol/L (-2.0-3.0); BG CARBOXYHEMOGLOBIN 0.4 % (0.5-1.5); BG DEOXYHEMOGLOBIN 1.5 % (0.0-5.0); BG FRACTION INSPIRED OXYGEN 40; BG HCO3 ACT 18.7 mmol/L (21.0-28.0); BG METHEMOGLOBIN 0.1 % (0.5-1.5); BG OXYGEN SATURATION 98.5 % (94.0-98.0); BG PCO2 25.5 mmHg (35.0-48.0); BG PH 7.484 (7.350-7.450); BG PO2 120.1 mmHg (83.0-108.0); BG SAMPLE SITE RIGHT RADIAL; BG TOTAL HEMOGLOBIN 16.9 g/dL (13.5-17.5); BG VENT MODE VENT - AC
[2023-12-22 20:53] LABS: HEMATOCRIT 33.7 % (42.0-52.0); HEMOGLOBIN 11.2 g/dL (14.0-18.0); MEAN CORPUSCULAR HEMOGLOBIN 29.7 pg (28.0-32.0); MEAN CORPUSCULAR HGB CONC 33.1 g/dL (31.0-37.0); MEAN CORPUSCULAR VOLUME 89.7 fL (80.0-94.0); PLATELET 96 x1000/uL (130-400); RED BLOOD CELL COUNT 3.76 mill/uL (4.7-6.1); RED CELL DISTRIBUTION WIDTH 16.2 % (11.6-14.6)
[2023-12-22 20:57] LABS: CHLORIDE 116 mEq/L (98-107); POTASSIUM 3.9 mEq/L (3.5-5.1); SODIUM 144 mEq/L (136-145)
[2023-12-22 20:58] LABS: CARBON DIOXIDE 23 mEq/L (21-32)
[2023-12-22 21:00] LABS: INR 1.1; PROTHROMBIN TIME 12.5 sec (9.6-11.0)
[2023-12-22 21:03] LABS: GLUCOSE 109 mg/dL (70-105)
[2023-12-22 21:03] LABS: CLARITY URINE TURBID (CLEAR); COLOR URINE DARK YELLOW (YELLOW); GLUCOSE URINE NEGATIVE (NEGATIVE); KETONES URINE NEGATIVE (NEGATIVE); LEUKOCYTE ESTERASE URINE TRACE (NEGATIVE); NITRITE URINE NEGATIVE (NEGATIVE); OCCULT BLOOD URINE 3+ (NEGATIVE); PH URINE 8.5 (4.5-8.0); PROTEIN URINE 1+ (NEGATIVE); SPECIFIC GRAVITY URINE 1.024 (1.005-1.030)
[2023-12-22 21:04] LABS: CREATININE 0.5 mg/dL (0.6-1.3); UREA NITROGEN BLOOD 15 mg/dL (9-23)
[2023-12-22 21:05] LABS: ALANINE AMINOTRANSFERASE 93 IU/L (10-49); AMYLASE 76 IU/L (30-118); ASPARTATE AMINOTRANSFERASE 143 IU/L (<34); BILIRUBIN DIRECT 0.6 mg/dL (<=3.0); LACTATE DEHYDROGENASE 311 IU/L (120-246)
[2023-12-22 21:06] LABS: BILIRUBIN TOTAL 1.3 mg/dL (0.1-1.0); PHOSPHORUS 2.7 mg/dL (2.5-4.9); PROTEIN TOTAL 6.3 g/dL (6.0-8.3)
[2023-12-22 21:19] LABS: BACTERIA URINE 3+; RBC URINE TNTC /hpf (0-2); SQUAMOUS EPITHELIAL CELL URINE FEW /lpf (RARE/1+); WBC URINE 0-2 /hpf (0-2)
[2023-12-22 21:20] LABS: AMORPHOUS SEDIMENT URINE 1+ /lpf
[2023-12-23] VITALS (75 sets, daily range): BP systolic 119–157; BP diastolic 69–108; PULSE 63–90; RESP 11–36; TEMP 36.78072–37.05852; O2SAT 97–100
[2023-12-23 00:47] LABS: EOSINOPHILS % 2.5 % (0.0-5.0); HEMATOCRIT. 31.3 % (42.0-52.0); HEMOGLOBIN. 10.3 g/dL (14.0-18.0); LYMPHOCYTES % 13.9 % (20.0-50.0); MEAN CORPUSCULAR HEMOGLOBIN 29.7 pg (28.0-32.0); MEAN PLATELET VOLUME 10.6 fl (7.4-10.4); MONOCYTES % 5.2 % (2.0-8.0); NEUTROPHILS % 77.4 % (40.0-76.0); PLATELET 90 x1000/uL (130-400); RED BLOOD CELL COUNT 3.47 mill/uL (4.7-6.1); RED CELL DISTRIBUTION WIDTH 16.1 % (11.6-14.6); WHITE BLOOD COUNT 6.3 x1000/uL (4.5-11.0)
[2023-12-23 00:58] LABS: CHLORIDE 115 mEq/L (98-107); POTASSIUM 3.8 mEq/L (3.5-5.1); SODIUM 144 mEq/L (136-145)
[2023-12-23 00:59] LABS: CALCIUM 7.5 mg/dL (8.7-10.4); CARBON DIOXIDE 23 mEq/L (21-32)
[2023-12-23 01:04] LABS: CREATININE 0.6 mg/dL (0.6-1.3); UREA NITROGEN BLOOD 15 mg/dL (9-23)
[2023-12-23 01:05] LABS: AMYLASE 64 IU/L (30-118); LACTATE DEHYDROGENASE 259 IU/L (120-246)
[2023-12-23 01:06] LABS: ALANINE AMINOTRANSFERASE 79 IU/L (10-49); ALBUMIN 2.6 g/dL (3.2-4.8); ASPARTATE AMINOTRANSFERASE 116 IU/L (<34); BILIRUBIN DIRECT 0.6 mg/dL (<=3.0); BILIRUBIN TOTAL 1.1 mg/dL (0.1-1.0); PHOSPHORUS 2.5 mg/dL (2.5-4.9); PROTEIN TOTAL 5.5 g/dL (6.0-8.3)
[2023-12-23 01:47] LABS: INR 1.2; PROTHROMBIN TIME 13.1 sec (9.6-11.0)
[2023-12-23 03:01] LABS: CHLORIDE 115 mEq/L (98-107); POTASSIUM 3.8 mEq/L (3.5-5.1); SODIUM 144 mEq/L (136-145)
[2023-12-23 03:02] LABS: CALCIUM 7.5 mg/dL (8.7-10.4); CARBON DIOXIDE 23 mEq/L (21-32)
[2023-12-23 03:07] LABS: CREATININE 0.6 mg/dL (0.6-1.3); UREA NITROGEN BLOOD 14 mg/dL (9-23)
[2023-12-23 03:09] LABS: ALANINE AMINOTRANSFERASE 81 IU/L (10-49); ALBUMIN 2.6 g/dL (3.2-4.8); ASPARTATE AMINOTRANSFERASE 119 IU/L (<34); BILIRUBIN TOTAL 1.1 mg/dL (0.1-1.0); PROTEIN TOTAL 5.6 g/dL (6.0-8.3)
[2023-12-23 03:48] LABS: GLUCOSE 324 mg/dL (70-105)
[2023-12-23 06:10] LABS: CHLORIDE 114 mEq/L (98-107); POTASSIUM 3.8 mEq/L (3.5-5.1); SODIUM 143 mEq/L (136-145)
[2023-12-23 06:11] LABS: CALCIUM 7.8 mg/dL (8.7-10.4); CARBON DIOXIDE 23 mEq/L (21-32)
[2023-12-23 06:16] LABS: BASOPHILS % 1.2 % (0.0-2.0); CREATININE 0.5 mg/dL (0.6-1.3); EOSINOPHILS % 2.6 % (0.0-5.0); HEMOGLOBIN. 10.3 g/dL (14.0-18.0); MEAN CORPUSCULAR HEMOGLOBIN 29.5 pg (28.0-32.0); MEAN CORPUSCULAR HGB CONC 33.2 g/dL (31.0-37.0); MEAN PLATELET VOLUME 10.7 fl (7.4-10.4); MONOCYTES % 5.4 % (2.0-8.0); NEUTROPHILS % 76.8 % (40.0-76.0); PLATELET 93 x1000/uL (130-400); RED BLOOD CELL COUNT 3.48 mill/uL (4.7-6.1); RED CELL DISTRIBUTION WIDTH 15.8 % (11.6-14.6); UREA NITROGEN BLOOD 16 mg/dL (9-23); WHITE BLOOD COUNT 6.4 x1000/uL (4.5-11.0)
[2023-12-23 06:17] LABS: AMYLASE 69 IU/L (30-118); LACTATE DEHYDROGENASE 287 IU/L (120-246)
[2023-12-23 06:18] LABS: ALANINE AMINOTRANSFERASE 90 IU/L (10-49); ALBUMIN 2.7 g/dL (3.2-4.8); ASPARTATE AMINOTRANSFERASE 126 IU/L (<34); BILIRUBIN DIRECT 0.6 mg/dL (<=3.0); BILIRUBIN TOTAL 1.2 mg/dL (0.1-1.0); PHOSPHORUS 2.9 mg/dL (2.5-4.9); PROTEIN TOTAL 5.9 g/dL (6.0-8.3)
[2023-12-23 07:15] LABS: GLUCOSE 107 mg/dL (70-105)
[2023-12-23 07:30] LABS: INR 1.2; PROTHROMBIN TIME 12.7 sec (9.6-11.0)
[2023-12-23 08:09] LABS: BG BASE EXCESS -1.7 mmol/L (-2.0-3.0); BG CARBOXYHEMOGLOBIN 0.3 % (0.5-1.5); BG DEOXYHEMOGLOBIN 1.4 % (0.0-5.0); BG HCO3 ACT 20.8 mmol/L (21.0-28.0); BG METHEMOGLOBIN 0.3 % (0.5-1.5); BG OXYGEN SATURATION 98.6 % (94.0-98.0); BG PCO2 28.4 mmHg (35.0-48.0); BG PH 7.483 (7.350-7.450); BG PO2 128.2 mmHg (83.0-108.0); BG SAMPLE SITE ALINE; BG TOTAL HEMOGLOBIN 10.8 g/dL (13.5-17.5); BG VENT MODE VENT - AC
[2023-12-23 08:10] LABS: CLARITY URINE TURBID (CLEAR); COLOR URINE DARK YELLOW (YELLOW); GLUCOSE URINE NEGATIVE (NEGATIVE); KETONES URINE NEGATIVE (NEGATIVE); LEUKOCYTE ESTERASE URINE NEGATIVE (NEGATIVE); NITRITE URINE NEGATIVE (NEGATIVE); OCCULT BLOOD URINE 1+ (NEGATIVE); PROTEIN URINE NEGATIVE (NEGATIVE); SPECIFIC GRAVITY URINE 1.019 (1.005-1.030)
[2023-12-23 08:49] LABS: AMORPHOUS SEDIMENT URINE 2+ /lpf
[2023-12-23 08:50] LABS: BACTERIA URINE 3+; SQUAMOUS EPITHELIAL CELL URINE NONE SEEN /lpf (RARE/1+)
[2023-12-23 08:51] LABS: RBC URINE 15-25 /hpf (0-2); WBC URINE 0-2 /hpf (0-2)
[2023-12-23 12:27] LABS: EOSINOPHILS % 2.9 % (0.0-5.0); HEMOGLOBIN. 10.4 g/dL (14.0-18.0); LYMPHOCYTES % 13.6 % (20.0-50.0); MEAN CORPUSCULAR HGB CONC 33.6 g/dL (31.0-37.0); MEAN CORPUSCULAR VOLUME 89.1 fL (80.0-94.0); MEAN PLATELET VOLUME 10.8 fl (7.4-10.4); MONOCYTES % 5.4 % (2.0-8.0); NEUTROPHILS % 77.1 % (40.0-76.0); PLATELET 101 x1000/uL (130-400); RED BLOOD CELL COUNT 3.49 mill/uL (4.7-6.1); RED CELL DISTRIBUTION WIDTH 15.9 % (11.6-14.6); WHITE BLOOD COUNT 6.9 x1000/uL (4.5-11.0)
[2023-12-23 12:36] LABS: CARBON DIOXIDE 22 mEq/L (21-32); CHLORIDE 115 mEq/L (98-107); POTASSIUM 3.8 mEq/L (3.5-5.1); SODIUM 143 mEq/L (136-145)
[2023-12-23 12:37] LABS: CALCIUM 7.6 mg/dL (8.7-10.4)
[2023-12-23 12:38] LABS: INR 1.2; PARTIAL THROMBOPLASTIN TIME 27.1 sec (23.4-31.0); PROTHROMBIN TIME 12.7 sec (9.6-11.0)
[2023-12-23 12:41] LABS: CREATININE 0.5 mg/dL (0.6-1.3); GLUCOSE 108 mg/dL (70-105)
[2023-12-23 12:42] LABS: UREA NITROGEN BLOOD 15 mg/dL (9-23)
[2023-12-23 12:43] LABS: ALANINE AMINOTRANSFERASE 88 IU/L (10-49); ALBUMIN 2.8 g/dL (3.2-4.8); AMYLASE 75 IU/L (30-118); ASPARTATE AMINOTRANSFERASE 123 IU/L (<34); LACTATE DEHYDROGENASE 287 IU/L (120-246)
[2023-12-23 12:44] LABS: BILIRUBIN DIRECT 0.6 mg/dL (<=3.0); BILIRUBIN TOTAL 1.2 mg/dL (0.1-1.0); PROTEIN TOTAL 5.9 g/dL (6.0-8.3)
[2023-12-23] MEDS ORDERED: HEPARIN 5000 UNITS/ML VIAL IV NR (13:12)
[2023-12-23 14:08] LABS: CLARITY URINE TURBID (CLEAR); COLOR URINE DARK YELLOW (YELLOW); GLUCOSE URINE NEGATIVE (NEGATIVE); KETONES URINE NEGATIVE (NEGATIVE); LEUKOCYTE ESTERASE URINE NEGATIVE (NEGATIVE); NITRITE URINE NEGATIVE (NEGATIVE); OCCULT BLOOD URINE NEGATIVE (NEGATIVE); PH URINE 8.5 (4.5-8.0); PROTEIN URINE TRACE (NEGATIVE); SPECIFIC GRAVITY URINE 1.021 (1.005-1.030)
[2023-12-23 14:38] LABS: AMORPHOUS SEDIMENT URINE 1+ /lpf
[2023-12-23 14:39] LABS: BACTERIA URINE 4+; SQUAMOUS EPITHELIAL CELL URINE NONE SEEN /lpf (RARE/1+)
[2023-12-23 14:40] LABS: RBC URINE 0-2 /hpf (0-2); WBC URINE 0-2 /hpf (0-2)
[2023-12-23] MEDS ORDERED: MORPHINE SULFATE 100 MG in DEXT 5% WATER 90 ML IV PRN (15:15)
[2023-12-23] MEDS: MORPHINE SULFATE 250 MG in DEXT 5% WATER 225 ML IV PRN (15:16)
[2023-12-23] MEDS: HEPARIN 5000 UNITS/ML VIAL IV NR (15:53)
[2023-12-24] VITALS: BP_SYST 104; BP_SYST 96; BP_DIAS 56; BP_DIAS 57; PULSE 117; RESP 15; TEMP 36.72516; O2SAT 96
[2023-12-24 04:00] VITALS: BP 96/57; PULSE 118; RESP 13; TEMP 36.72516; O2SAT 92
[2023-12-24 08:00] VITALS: BP 111/58; PULSE 110; RESP 18; TEMP 37.72524; O2SAT 96
[2023-12-24 12:00] VITALS: BP 108/47; PULSE 102; RESP 18; TEMP 38.39196; O2SAT 96
[2023-12-24 16:00] VITALS: BP 105/52; PULSE 107; RESP 18; TEMP 38.39196; O2SAT 96
[2023-12-24 20:00] VITALS: PULSE 102; RESP 20; TEMP 38.72532; O2SAT 92
[2023-12-24] MEDS: ACETAMINOPHEN 650MG SUPP PR SCH (21:53)
[2023-12-25] VITALS (8 sets, daily range): BP systolic 100–135; BP diastolic 58–87; PULSE 88–123; RESP 11–22; TEMP 36.78072–39.61428; O2SAT 88–99
[2023-12-25] MEDS: ACETAMINOPHEN 650MG SUPP PR PRN (13:18)
[2023-12-25] MEDS: MORPHINE SULFATE IV PRN (16:51)
[2023-12-26] VITALS: BP 104/62; PULSE 85; RESP 16; TEMP 36.89184; O2SAT 98
[2023-12-26 04:00] VITALS: BP 106/68; PULSE 81; RESP 17; TEMP 37.39188; O2SAT 96
[2023-12-26 08:00] VITALS: BP 115/61; PULSE 88; RESP 15; TEMP 38.22528; O2SAT 96
== END 2023-12-26 11:04 | DRG 21 ==
LOC: ER 11:33 → EDBEDREQ 16:51 → EDBEDREQTM 16:51 → 5WST 18:33 → MICUSO 12-13 09:55 → 6EST 12-23 19:18
PROVIDERS: ADMIT Internal Medicine; ATTEND Internal Medicine
PROC: 5A1955Z Respiratory Ventilation, Greater than 96 Consecutive Hours (ICD-10-PCS; 2023-12-13)
PROC: 0BH17EZ Insertion of Endotracheal Airway into Trachea, Via Natural or Artificial Opening (ICD-10-PCS; 2023-12-13)
PROC: 00C00ZZ Extirpation of Matter from Brain, Open Approach (ICD-10-PCS; 2023-12-13)
PROC: 009600Z Drainage of Cerebral Ventricle with Drainage Device, Open Approach (ICD-10-PCS; 2023-12-13)
PROC: 30233R1 Transfusion of Nonautologous Platelets into Peripheral Vein, Percutaneous Approach (ICD-10-PCS; 2023-12-13)
PROC: 00U207Z Supplement Dura Mater with Autologous Tissue Substitute, Open Approach (ICD-10-PCS; 2023-12-14)
PROC: 4A103BD Monitoring of Intracranial Pressure, Percutaneous Approach (ICD-10-PCS; 2023-12-14)
PROC: 03HY32Z Insertion of Monitoring Device into Upper Artery, Percutaneous Approach (ICD-10-PCS; principal; 2023-12-23)
DX: I61.5 Nontraumatic intracerebral hemorrhage, intraventricular (principal); J96.01 Acute respiratory failure with hypoxia; A41.9 Sepsis, unspecified organism; J15.0 Pneumonia due to Klebsiella pneumoniae; J15.69 Pneumonia due to other Gram-negative bacteria; D69.6 Thrombocytopenia, unspecified; D68.9 Coagulation defect, unspecified; K76.82 Hepatic encephalopathy; K72.90 Hepatic failure, unspecified without coma; Z66 Do not resuscitate; K74.60 Unspecified cirrhosis of liver; N39.0 Urinary tract infection, site not specified; F10.20 Alcohol dependence, uncomplicated; Y90.9 Presence of alcohol in blood, level not specified; L98.9 Disorder of the skin and subcutaneous tissue, unspecified; Z51.5 Encounter for palliative care; Z86.73 Personal history of transient ischemic attack (TIA), and cerebral infarction without residual deficits; Z99.11 Dependence on respirator [ventilator] status
CPT/HCPCS: 31500; 36415; 36600; 70496; 70498; 71045; 76705; 80048; 80053; 80061; 80076; 80156; 80165; 80184; 80185; 80202; 80305; 80320; 81003; 82140; 82150; 82248; 82330; 82375; 82550; 82553; 82805; 82962; 82977; 83605; 83615; 83735; 84100; 84145; 84443; 84478; 84484; 85025; 85027; 86850; 86900; 87070; 87077; 87186; 88307; 93005; 94003; 94640; 99291; A6261; C1758; J0690; J1100; J1171; J1580; J1644; J1953; J2150; J2185; J2270; J2405; J2470; J2543; J2704; J3010; J3370; J3480; J3490; J7030; J7050; J7060; J7120; J7121; J7608; P9034; Q9967; C1713; G0480